=== PATIENT | female | born 1930 | race Caucasian/White ===

== ENCOUNTER 2017-01-30 12:21 | Inpatient (IN) ==
[2017-01-30] MEDS ORDERED: HYDROmorphone 2 MG/ML SYRINGE IV ONE (13:59)
[2017-01-30] MEDS ORDERED: ONDANSETRON 4 MG/2 ML VIAL IV ONE ×2 (13:59→16:30)
--- NOTE | 2017-01-30 14:16 | XRay Report ---
CLINICAL INFORMATION: Trauma TECHNIQUE: AP, supine chest x-ray COMPARISON: Previous chest x-ray dated 03/15/2014 FINDINGS: Lungs are negative. No focal pulmonary parenchymal infiltrate or mass. No pulmonary contusion. No pneumothorax identified on this AP, supine radiograph No detectable rib fractures. Heart size and mediastinum are prominent but this is probably related to magnification on this AP, supine chest x-ray. Aortic knob remain sharp. Severe degenerative disease in the lumbar spine. IMPRESSION: Negative AP, supine chest x-ray Interpreted and Authenticated by: Jasmeet Olguin 01/30/17
--- NOTE | 2017-01-30 14:18 | XRay Report ---
CLINICAL INFORMATION: Fall. Pelvic pain. TECHNIQUE: AP, supine pelvis COMPARISON: Chest x-ray dated 05/13/2015 FINDINGS: Fracture deformity of the proximal left femur. Patient has undergone prior left hip replacement. Negative pelvis. No lytic lesion. No fracture. Sacrum is negative. No detectable fracture. Severe degenerative disease in the lower lumbar spine. IMPRESSION: No acute, posttraumatic abnormality. Interpreted and Authenticated by: Jasmeet Olguin 01/30/17
--- NOTE | 2017-01-30 14:19 | XRay Report ---
CLINICAL INFORMATION: Trauma. Fell. TECHNIQUE: AP and crosstable lateral right knee COMPARISON: None. FINDINGS: Degenerative joint disease with moderate to severe narrowing of the medial femoral tibial joint and patellofemoral joint. Mild chondrocalcinosis. No acute right knee fracture. There is a probable small joint effusion. No lipohemarthrosis identified on crosstable lateral view. IMPRESSION: 1. Degenerative joint disease 2. Probable small joint effusion 3. No acute fracture Interpreted and Authenticated by: Jasmeet Olguin 01/30/17
--- NOTE | 2017-01-30 14:24 | XRay Report ---
CLINICAL INFORMATION: Fall. TECHNIQUE: AP and lateral left femur COMPARISON: Previous examination dated 01/04/2011 FINDINGS: Interval removal of an intramedullary nail extending the length of the left femur. Interval placement of a left total hip prosthesis. There is a healed fracture deformity proximally. Acute markedly comminuted left supracondylar fracture at the junction of the diaphysis and distal metaphysis. There are multiple fragments with impaction and displacement. IMPRESSION: Markedly comminuted distal left femoral fracture at the junction of the diaphysis and metaphysis. Interpreted and Authenticated by: Jasmeet Olguin 01/30/17
[2017-01-30 14:38] LABS: Mean Cell Volume 90.8 fL (80.0-100.0); Mean Corpuscular HGB Conc 32.7 g/dL (31.0-36.0); Mean Corpuscular Hemoglobin 29.7 pg (26.0-34.0); Platelet Count 269 K/mcL (140-440); RBC 4.24 M/mcL (4.00-5.20); Red Cell Distribution Width 14.4 % (11.5-14.5)
[2017-01-30 15:03] LABS: ALT/SGPT 9 U/l (0-40); Albumin 4.2 gm/dL (3.2-5.2); Albumin/Globulin Ratio 1.4 (1.0-2.3); Alkaline Phosphatase 68 U/L (39-117); Blood Urea Nitrogen 10 mg/dl (8-23)
[2017-01-30 15:11] LABS: Band Neutrophils % 1 % (0-10); Basophils % (Manual) 1 % (0-2); Eosinophils % (Manual) 1 % (0-7); Lymphocytes % 17 % (15-49); Monocytes % (Manual) 5 % (1-9); Platelet Estimate NORMAL (NORMAL); RBC Morphology NORMAL (NORMAL); Segmented Neutrophils % 75 % (38-78)
[2017-01-30] MEDS ORDERED: HYDROmorphone 2 MG/ML SYRINGE ONE (16:09)
[2017-01-30 16:29] LABS: Appearance,Urine CLOUDY; Bacteria,Urine FEW /hpf (0); Bilirubin,Urine NEG (NEG); Color,Urine YELLOW; Glucose,Urine (UA) NEGATIVE (NEG); Leukocyte Esterase,Urine 500 /uL (NEG); Nitrate,Urine NEG (NEG); Protein,Urine NEG (NEG); Specific Gravity,Urine 1.009 (1.000-1.035); Urine Blood NEG mg/dL (<0.03); Urine RBC 12 /hpf (0-1); Urine Squamous Epithelial Cell 1 /hpf (0-4); Urine WBC > 182 /hpf (0-4); Urobilinogen,Urine NEG (NEG)
[2017-01-30] MEDS ORDERED: fentaNYL 100 MCG/2 ML VIAL IV ONE (16:30)
[2017-01-30] MEDS ORDERED: PROPOFOL 200 MG/20 ML VIAL IV ONE (16:30)
[2017-01-30] MEDS ORDERED: DEXAMETHASONE 10 MG/ML VIAL IV ONE (16:30)
[2017-01-30] MEDS ORDERED: KETAMINE 100 MG/ML ML IV ONE (16:30)
[2017-01-30] MEDS ORDERED: LIDOCAINE HCL/PF 100 MG/5 ML SYRINGE IV ONE (16:30)
[2017-01-30] MEDS ORDERED: POTASSIUM CHLORIDE 20 MEQ PACKET PO PRN (17:28)
[2017-01-30] MEDS ORDERED: ACETAMINOPHEN 1,000 MG/100 ML BOTTLE IV PRN (17:28)
[2017-01-30] MEDS ORDERED: traZODone HCL 50 MG TABLET PO PRN (17:28)
[2017-01-30] MEDS ORDERED: MAGNESIUM SULFATE 2 GM/50 ML BAG IV PRN (17:28)
[2017-01-30] MEDS ORDERED: guaiFENesin/CODEINE 10 ML UDC PO PRN (17:28)
[2017-01-30] MEDS ORDERED: ACETAMINOPHEN 325 MG TABLET PO PRN (17:28)
[2017-01-30] MEDS ORDERED: ONDANSETRON 4 MG/2 ML VIAL IV PRN (17:28)
[2017-01-30] MEDS: cefTRIAXone 2 GM in DEXTROSE 5% IN WATER 50 ML IV SCH (18:34)
[2017-01-30] MEDS: 0.9 % SODIUM CHLORIDE 1,000 ML IV SCH (18:35)
--- NOTE | 2017-01-30 19:56 | Consultation ---
DATE OF CONSULTATION: 01/30/2017 DATE OF ADMISSION: 01/30/2017 PRIMARY CARE PHYSICIAN: Ishan Bedolla MD REASON FOR ADMISSION: Fall with left femur fracture. HISTORY OF CHIEF COMPLAINT: The patient is an 86-year-old resident of [facility]. She suffers from significant dementia and minimally functional at baseline, talk in 1 word sentences. Today she was found on the floor in significant pain and was brought into [facility] ER. Initial workup was significant for fracture femur. Dr. Walker was consulted for admission. Hospitalist service was requested for preoperative risk evaluation along with management of medical issues. At the time of examination, the patient is in significant pain. Though no history could be obtained, her son aRfa was able to provide most of the history, but otherwise extensive records were reviewed from the ER as to course of events from today. Other than that, patient does not appear to be short of breath. REVIEW OF SYSTEMS: Ten-point review of system attempted, could not perform, patient is essentially nonverbal. She would occasionally smile at questions. CURRENT MEDICATIONS: Tramadol 50. Paroxetine 20. Oxybutynin 5. Losartan 100. Levothyroxine 100. Furosemide 40. Donepezil 10. Aspirin 81. Amlodipine 2.5. Alendronate 70. PAST MEDICAL HISTORY: 1. History of hypertension. 2. Dementia. 3. Hypothyroidism. 4. Anxiety disorder. 5. Degenerative joint disease. 6. Osteoporosis. SOCIAL HISTORY: No history of smoking or alcoholism, lives at [facility] along with her . CODE STATUS: She is a NO CODE status. She sees primary care physician Ishan Bedolla MD. FAMILY HISTORY: None relevant given advanced age and presenting symptoms. PHYSICAL EXAMINATION: GENERAL: The patient is awake but not oriented. BMI 31. Height 5 feet 2 inches. VITAL SIGNS: Blood pressure 111/63, respiration rate 18, temperature 97.6, pulse 64, saturation 96% on room air. HEENT: Pupils symmetric. Oral cavity is dry. No ear or nose discharge. Head is normocephalic and atraumatic. NECK: No lymphadenopathy. HEART: S1, S2, regular rhythm, but ESM grade I at the aortic area. ABDOMEN: Soft. LOWER EXTREMITIES: Left lower extremity externally rotated and shortened as compared to right lower extremity, normal pulses posterior tibial. No cyanosis or clubbing. Significant spasm and erythema around the left lower end of thigh. SKIN: No suspicious lesions. PSYCHIATRIC: Alert but no anxiety or agitation, cooperative. NEURO: Nonfocal. Higher function could not be performed. Moving bilateral upper extremities. Significant dementia at baseline with no acute changes as per son. LABS AND IMAGING: White count 9.9, hemoglobin 12.6, INR 1. Sodium 140, potassium 4.1, creatinine 0.9, BUN 10. LFTs unremarkable. UA significant for 182 WBCs. X-ray femur left: Markedly comminuted distal left femoral fracture at junction of the diaphysis and metaphysis. ASSESSMENT AND PLAN: An 86-year-old admitted with left femur fracture/complicated urinary tract infection. 1. Left femur fracture. Will be managed by orthopedics including pain management and postoperative care. 2. Complicated urinary tract infection. Continue ceftriaxone. 3. History of dementia. Continue donepezil. Watch for delirium. 4. History of hypertension. Continue losartan. 5. Anxiety disorder. Continue paroxetine. PLAN FOR TODAY: 1. Admit as inpatient. 2. Nothing by mouth after midnight. 3. Operative interventions/postop care, DVT prophylaxis, and pain management as per orthopedics. 4. Preexisting medical condition management as above. AA:jordin Job ID: [id number] Doc ID: [id number] Anthony Walker MD
[2017-01-30 20:17] LABS: Hemoglobin A1C 5.5 % HGB (4.0-6.0)
[2017-01-30] MEDS ORDERED: SENNOSIDES/DOCUSATE SODIUM 1 TAB TABLET PO SCH (21:00)
[2017-01-30] MEDS: DOCUSATE SODIUM 100 MG CAPSULE PO SCH (21:05)
[2017-01-30] MEDS: 0.9 % SODIUM CHLORIDE 10 ML SYRINGE IV SCH (21:07)
[2017-01-31] MEDS: HYDROmorphone 2 MG/ML SYRINGE IV PRN ×3 (02:56→10:42)
[2017-01-31 06:11] LABS: Mean Cell Volume 90.9 fL (80.0-100.0); Mean Corpuscular HGB Conc 32.7 g/dL (31.0-36.0); Mean Corpuscular Hemoglobin 29.8 pg (26.0-34.0); Platelet Count 230 K/mcL (140-440); RBC 3.41 M/mcL (4.00-5.20); Red Cell Distribution Width 14.4 % (11.5-14.5)
[2017-01-31] MEDS: 0.9 % SODIUM CHLORIDE 10 ML SYRINGE IV SCH ×3 (06:11→21:31)
[2017-01-31 06:57] LABS: ALT/SGPT 11 U/l (0-40); Albumin 3.4 gm/dL (3.2-5.2); Albumin/Globulin Ratio 1.3 (1.0-2.3); Alkaline Phosphatase 62 U/L (39-117); Bilirubin,Direct < 0.2 mg/dL (0.0-0.3); Blood Urea Nitrogen 13 mg/dl (8-23); Gamma Glutamyl Transpeptidase 9 U/L (5-36); Phosphorous 3.1 mg/dL (2.7-4.5)
--- NOTE | 2017-01-31 07:35 | History and Physical Report ---
DATE OF ADMISSION: 01/30/2017 CHIEF COMPLAINT: Deformity of the left femur. HISTORY OF PRESENT ILLNESS: The patient is an 86-year-old confused lady who fell at the halfway, not using her walker, had immediate pain, swelling, and deformity of her left lower extremity. This was deformed. She was unable to bear weight. She was seen in the emergency room and diagnosed with a comminuted supracondylar femur fracture with severe osteopenia. She also has significant dementia. PAST MEDICAL HISTORY: She has been confused and has been in an assisted living facility until more recently. She had become somewhat reliant on her walker, but she has been walking short distances with the walker. She has had a prior total hip arthroplasty. ALLERGIES: TRAZADONE. MEDICATIONS: See admission form. PHYSICAL EXAMINATION: GENERAL: Very pleasant elderly 86-year-old in no acute distress. VITAL SIGNS: Respiratory rate is 16. LUNGS: Clear to auscultation bilaterally. CARDIOVASCULAR: Regular rate and rhythm. No murmurs, rubs, or gallops. ABDOMEN: Soft, nontender. NEURO: She seems to be appropriate for age but mentally/neurologically she is confused. LOWER EXTREMITIES: She is able to move her toes with good capillary refill, but pulses are diminished. She has some pain with any motion of the left lower extremity. Examination of the femur demonstrates deformity of the left femur with good capillary refill and quite a bit of swelling. No deformity of the right. IMAGING STUDIES: X-rays of the left femur demonstrate comminuted supracondylar femur fractures. X-rays of the right demonstrate osteopenia age-related, but no fracture, minimal arthritis. IMPRESSION: Left supracondylar femur fracture with severe osteopenia with some bone cement above, which will help I think with the repair. PLAN: An open reduction and internal fixation of the left supracondylar femur fracture with a supracondylar plate and screws understanding the risks and benefits up into and including have been discussed. Treatment options such as bracing, casting and nonsurgical options were discussed. The patient with the son has decided to proceed with open reduction and internal fixation of left supracondylar femur fracture. Amended report 01/31/2017 caren CRAVEN:caren Job ID: [id number] Doc ID: [id number] Andriy Walker MD
[2017-01-31] MEDS ORDERED: 0.9 % SODIUM CHLORIDE 250 ML IV SCH ×2 (07:45→15:45)
[2017-01-31 08:33] LABS: Eosinophils % (Manual) 1 % (0-7); Lymphocytes % 14 % (15-49); Monocytes % (Manual) 5 % (1-9); Platelet Estimate NORMAL (NORMAL); RBC Morphology NORMAL (NORMAL); Segmented Neutrophils % 80 % (38-78)
[2017-01-31] MEDS ORDERED: MULTIVIT,THER IRON,CA,FA & MIN 1 TABLET PO SCH (09:00)
[2017-01-31] MEDS: cefTRIAXone 2 GM in DEXTROSE 5% IN WATER 50 ML IV SCH (09:02)
[2017-01-31] MEDS: DOCUSATE SODIUM 100 MG CAPSULE PO SCH ×2 (09:05→21:26)
--- NOTE | 2017-01-31 10:15 | Internal Med Progress Note ---
Medical - PN: Subj Patient information: Note initiated : 01/31/17 at 10:12 am Service Date, if different from initiated Date: [] Patient: Andie Way 86 y/o F admitted on 01/30/17 for Fell without walker hurt right knee. Chief Complaint: [] Interval history: 01/30- 6-year-old with advanced dementia admitted with fall/left femur fracture and complicated UTI. surgeryon 01/31. Orthopedics on board. Continue pain management. Keep nothing by mouth after midnight. 01/31- patient nothing by mouth. Will review postop. Urine cultures pending. On Rocephin. Afebrile. No overnight events including fever chills nausea vomiting or worsening pain. Dementia at baseline - Constitutional Vitals: Vital Signs Temp Pulse Resp BP Pulse Ox 98.2 F 73 16 125/81 94 01/31/17 08:38 01/31/17 07:13 01/31/17 08:38 01/31/17 08:38 01/31/17 08:38 Period Temp Pulse Resp BP Sys/Camejo Pulse Ox Last 24 Hr 96.9 F-98.5 F 73-86 12-18 123-128/72-90 90-94 Intake and Output 01/30/17 01/31/17 01/31/17 21:59 05:59 13:59 Intake Total 50 / 50 150 / 150 Output Total 325 / 325 Balance 50 / 50 -175 / -175 Weight 172 lb Intake & Output: Intake & Output 01/30/17 01/31/17 01/31/17 21:59 05:59 13:59 Intake Total 50 / 50 150 / 150 Output Total 325 / 325 Balance 50 / 50 -175 / -175 Weight 172 lb Intake: IV 50 / 50 Rocephin 2 gm In Dextrose 50 / 50 5% in Water 50 ml @ 100 mls/hr IV DAILY [facility] Rx#: [id number] Oral 150 / 150 Output: Urine Catheter Amount 325 / 325 General appearance: cooperative, no acute distress Exam: distressed nonlabored breathing Left lower extremity shortened and externally rotated No family at bedside No pallor Medical - PN: Obj Da - Labs CBC & Chem 7: 01/31/17 05:15 01/31/17 05:15 Labs: Abnormal Lab Results 01/31/17 01/31/17 05:15 05:15 RBC 3.41 L Hgb 10.1 L Hct 31.0 L Seg Neutrophils % 80 H Lymphocytes % 14 L Glucose 124 H Meds: Medications Acetaminophen (Tylenol) 650 mg PO Q4-6HP PRN PRN Reason: PAIN/FEVER > 101 Last Admin: 01/30/17 23:41 Dose: 650 mg Docusate Sodium (Colace) 100 mg PO BID [facility] Last Admin: 01/31/17 09:05 Dose: Not Given Guaifenesin/Codeine Phosphate (Robitussin Ac) 10 ml PO Q4HP PRN PRN Reason: Cough Hydromorphone HCl (Dilaudid) 0 mg IV Q4HP PRN PRN Reason: Pain Last Admin: 01/31/17 05:14 Dose: 0.25 mg Magnesium Sulfate (Magnesium Sulfate) 2 gm in 50 mls @ 50 mls/hr IV UD PRN PRN Reason: MG = or < 1.7 Sodium Chloride (Sodium Chloride 0.9%) 1,000 mls @ 50 mls/hr IV .Q20H [facility] Stop: 02/02/17 05:27 Last Admin: 01/30/17 18:35 Dose: 50 mls/hr Acetaminophen (Ofirmev) 1,000 mg in 100 mls @ 200 mls/hr IV Q6HP PRN PRN Reason: PAIN/FEVER > 101 Ceftriaxone Sodium 2 gm/ (Dextrose) 50 mls @ 100 mls/hr IV DAILY [facility] Last Admin: 01/31/17 09:02 Dose: 100 mls/hr Sodium Chloride (Sodium Chloride 0.9%) 250 mls @ 20 mls/hr IV .[id number] [facility] Stop: 01/31/17 20:14 Iron Carb/Multivit/Summers/Folic Acid (Multivitamin W/Minerals) 1 tab PO DAILY [facility] Last Admin: 01/31/17 09:05 Dose: Not Given Ondansetron HCl (Zofran) 4 mg IV Q4-6HP PRN PRN Reason: Nausea And Vomiting Potassium Chloride (Klor-Con) 40 meq PO DAILYP PRN PRN Reason: K+ < 3.5 Senna/Docusate Sodium (Senna Plus Tablet) 1 tab PO HS [facility] Last Admin: 01/30/17 21:05 Dose: 1 tab Sodium Chloride (Saline Flush) 10 ml IV Q8 [facility] Last Admin: 01/31/17 06:11 Dose: Not Given Medical - PN: A/P - Time Spent With Patient Total time spent is greater than 50% in coordination of care (as documented) at patient's floor/unit and/or counseling patient: 25 - 35 minutes (1) Femur fracture, left Status: Acute Assessment and plan: * left femur fracture- operative intervention today. Patient nothing by mouth Issues managed by hospitalist service * complicated UTI-continue Rocephin. Await cultures * history of dementia-continue donepezil. delirium watch * Hypothyroidism on thyroxine * Anxiety disorder on paroxetine * Hypertension losartan/amlodipine * DNR plan * Review postop * Resume prior home medications post surgery * Continue antibiotic coverage and de-escalate based on cultures * Physical therapy Current Visit: Yes Medical - PN: Qual - VTE Deep Vein Thrombosis/Pulmonary Embolism Present on Admission: No
--- NOTE | 2017-01-31 13:22 | Emergency Department Note ---
Lower Extremity Injury HPI - General Chief Complaint: Extremity Injury, Lower Stated Complaint: Fell without walker hurt right knee Time Seen by Provider: 01/30/17 13:10 Source: other Mode of arrival: wheelchair Limitations: no limitations - History of Present Illness MD complaint: hip injury, knee injury Onset (ago): hour(s) (1) Injury: Left: hip, knee Type of Injury: other (fall) Place: home Severity: severe Improves with: immobilization Worsens with: movement, palpation Context: fall Associated symptoms: Reports: swelling, unable to bear weight Other symptoms: confusion (chronic dementia) Treatments prior to arrival: cold therapy - Related Data Home Medications Medication Instructions Recorded Confirmed cholecalciferol (vitamin D3) 1,000 1,000 unit PO QDAY cap 10/23/16 01/31/17 unit capsule Acetaminophen [Tylenol] 325 - 650 mg PO Q4-6HP PRN 01/31/17 01/31/17 Magnesium Hydroxide [Milk of 30 ml PO DAILYP PRN 01/31/17 01/31/17 Magnesia] Phenyleph/Pramoxin/Glycr/W.pet 51 gm RC 2-3XW PRN 01/31/17 01/31/17 [Hemorrhoidal Cream] Previous Rx's Medication Instructions Recorded paroxetine 20 mg tablet 20 mg PO QDAY #90 tab 01/09/16 levothyroxine 100 mcg capsule 100 mcg PO QDAY #90 cap 03/19/16 aspirin 81 mg chewable tablet 81 mg PO QDAY #30 tab 03/27/16 furosemide 40 mg tablet 40 mg PO QDAY 90 Days 09/25/16 potassium chloride ER 10 mEq 10 meq PO QDAY #180 tab 11/06/16 tablet,extended release alendronate 70 mg tablet 70 mg PO QWEEK #12 tab 11/14/16 donepezil 10 mg tablet 10 mg PO QDAY 90 Days 11/14/16 omeprazole 40 mg capsule,delayed 40 mg PO QDAY 90 Days 11/14/16 release oxybutynin chloride 5 mg tablet 5 mg PO BID PRN 90 Days 11/14/16 tramadol 50 mg tablet 50 mg PO QHS PRN #90 tab 11/15/16 losartan 100 mg tablet 100 mg PO QDAY 90 Days 11/19/16 amlodipine 2.5 mg tablet 2.5 mg PO QDAY 90 Days 11/26/16 docusate sodium 100 mg capsule 100 mg PO BID PRN #180 cap 12/10/16 Allergies Allergy/AdvReac Type Severity Reaction Status Date / Time trazodone AdvReac Intermediate Confusion Verified 10/23/16 09:50 Review of Systems Limitations: ROS unobtainable due to patients medical condition (patient is demented but able to cooperate adequately with initial assessment re injury) Constitutional: Denies: fever, chills Eyes: Denies: eye pain, eye discharge ENT ED: Denies: ear pain, throat pain Cardiovascular: Denies: chest pain, palpitations Respiratory: Denies: cough Gastrointestinal: Reports: constipation. Denies: abdominal pain, nausea, vomiting Genitourinary: Reports: urgency, dysuria, other (Chronic incontinence) Musculoskeletal: Reports: back pain, joint swelling, arthralgia Integumentary: Denies: rash Neurological: Reports: weakness, abnormal gait (uses walker, was not using walker at time of injury). Denies: headache Psychiatric: Reports: other (dementia) Past Medical History - Past Medical History Source: old records reviewed, obtained from family Medical history: Reports: arthritis, CVA, dementia, hypertension, osteoporosis, thyroid disease Surgical history ED: Reports: hip replacement, orthopedic, other Psychiatric history: Reports: other (Dementia and depression) [employer] history: Reports: other (Uterine prolapse) Family history: Reports: non-contributory - Social History smoking status: Unknown if ever smoked Alcohol use: Reports: Unknown Drug use: Reports: none Physical Exam - General Limitations: no limitations General appearance: alert, in distress - Head Head exam: atraumatic, normocephalic - Eye Eye exam: Present: normal appearance. Absent: scleral icterus, conjunctival injection - ENT ENT exam: mucous membranes moist - Neck Neck exam: Present: normal inspection. Absent: tenderness, meningismus, lymphadenopathy - Chest Chest inspection: Present: symmetric chest wall rise, other (kyphosis). Absent : tenderness - Respiratory Respiratory exam: Present: normal lung sounds bilaterally (diminished in bases) . Absent: respiratory distress, wheezes - Cardiovascular Cardiovascular exam: Present: tachycardia - Abdominal Exam Abdominal exam: Present: soft. Absent: distention, tenderness, guarding, rebound - Expanded Lower Extremity Exam Hip/Pelvis exam: Present: swelling, external rotation, shortening Upper leg exam: Present: swelling Knee exam: Present: tenderness, swelling, deformity (Left leg is foreshortened and exernally rotated. This is a previously surgical hip, and there is some concern for previous femur fractures. She is profoundly tender with any manipulation of the left leg. Knee is swollen and tight, tender the entire length of femur into hip. Right pelvis nontender to palpation.) Lower leg exam: Present: Achilles tendon intact Ankle exam: Present: other (foot externally rotated) Foot/toe exam: Absent: swelling, ecchymosis, erythema, nail avulsion Course Course Narrative: Xray of hip femur and knee reveal multiplane fracture of the distal femur. Dr. Peace contacted. She will be admitted to the services of Dr Weiner as hospitalist, DR Peace will perform orthopedic repair. She is medicated for pain and is "comfortable" by her report. Family at the bedside. Urinary catheter in place, IV running. NPO since around noon. Awaiting transfer to the medical surgical floor Vital Signs Temperature 97.6 F 01/30/17 12:23 Pulse Rate 100 H 01/30/17 12:23 Respiratory Rate 18 01/30/17 12:23 Blood Pressure 111/63 01/30/17 12:23 Pulse Oximetry (%) 3 L 01/30/17 12:23 Temperature 98.6 F 01/31/17 12:37 Pulse Rate 73 01/31/17 07:13 Respiratory Rate 16 01/31/17 12:37 Blood Pressure 116/70 01/31/17 12:37 Pulse Oximetry (%) 92 01/31/17 12:37 Extremity Injury, Lower - MDM Narrative Medical decision making narrative: Initial urine dip indicates probable UTI. She is chronically incontinent. Sent for Micro and culture CBC, CMP actually quite unremarkable, CR 0.9, Lytes WNL, Liver enzymes WNL Await transfer to med-surg unit for follow up and repair - Lab Data Result diagrams: 01/31/17 05:15 01/31/17 05:15 Lab Results 01/30/17 01/30/17 01/30/17 Range/Units 14:02 14:02 14:02 WBC 9.9 (4.5-11.0) K/mcL RBC 4.24 (4.00-5.20) M/mcL Hgb 12.6 (12.0-15.0) g/dL Hct 38.5 (36.0-48.0) % MCV 90.8 (80.0-100.0) fL MCH 29.7 (26.0-34.0) pg MCHC 32.7 (31.0-36.0) g/dL RDW 14.4 (11.5-14.5) % Plt Count 269 (140-440) K/mcL MPV 7.9 (7.4-10.4) fL Total Counted 100 Seg Neutrophils % 75 (38-78) % Band Neutrophils % 1 (0-10) % Lymphocytes % 17 (15-49) % Monocytes % (Manual) 5 (1-9) % Eosinophils % (Manual) 1 (0-7) % Basophils % (Manual) 1 (0-2) % Platelet Estimate Normal (NORMAL) RBC Morphology Normal (NORMAL) PT 13.3 (11.9-14.5) sec INR 1.0 (0.9-1.1) Sodium 140 (133-145) mmol/L Potassium 4.1 (3.3-5.1) mmol/L Chloride 100 (96-108) mmol/L Carbon Dioxide 26 (22-30) mmol/L Anion Gap 14.0 (8-16) BUN 10 (8-23) mg/dl Creatinine 0.9 (0.6-1.1) mg/dl GFR Calculation 58 Glucose 125 H (70-105) mg/dL Hemoglobin A1c (4.0-6.0) % HGB Estim Average Glucose mg/dL Calcium 10.1 (8.6-10.4) mg/dl Total Bilirubin 0.3 (0.0-1.0) mg/dL AST 14 (0-37) U/l ALT 9 (0-40) U/l Alkaline Phosphatase 68 (39-117) U/L Total Protein 7.1 (5.9-8.4) gm/dL Albumin 4.2 (3.2-5.2) gm/dL Globulin 2.9 (2.2-3.7) gm/dL Albumin/Globulin Ratio 1.4 (1.0-2.3) Urine Color Urine Appearance Urine pH (5.0-9.0) Ur Specific [place] (1.000-1.035) Urine Protein (NEG) mg/dL Urine Glucose (UA) (NEG) mg/dL Urine Ketones (NEG) mg/dL Urine Occult Blood (<0.03) mg/dL Urine Nitrate (NEG) Urine Bilirubin (NEG) mg/dL Urine Urobilinogen (NEG) mg/dL Ur Leukocyte Esterase (NEG) /uL Urine RBC (0-1) /hpf Urine WBC (0-4) /hpf Ur Squamous Epith Cells (0-4) /hpf Urine Bacteria (0) /hpf Ur Culture Indicated? 01/30/17 01/30/17 Range/Units 14:02 16:14 WBC (4.5-11.0) K/mcL RBC (4.00-5.20) M/mcL Hgb (12.0-15.0) g/dL Hct (36.0-48.0) % MCV (80.0-100.0) fL MCH (26.0-34.0) pg MCHC (31.0-36.0) g/dL RDW (11.5-14.5) % Plt Count (140-440) K/mcL MPV (7.4-10.4) fL Total Counted Seg Neutrophils % (38-78) % Band Neutrophils % (0-10) % Lymphocytes % (15-49) % Monocytes % (Manual) (1-9) % Eosinophils % (Manual) (0-7) % Basophils % (Manual) (0-2) % Platelet Estimate (NORMAL) RBC Morphology (NORMAL) PT (11.9-14.5) sec INR (0.9-1.1) Sodium (133-145) mmol/L Potassium (3.3-5.1) mmol/L Chloride (96-108) mmol/L Carbon Dioxide (22-30) mmol/L Anion Gap (8-16) BUN (8-23) mg/dl Creatinine (0.6-1.1) mg/dl GFR Calculation Glucose (70-105) mg/dL Hemoglobin A1c 5.5 (4.0-6.0) % HGB Estim Average Glucose 111 mg/dL Calcium (8.6-10.4) mg/dl Total Bilirubin (0.0-1.0) mg/dL AST (0-37) U/l ALT (0-40) U/l Alkaline Phosphatase (39-117) U/L Total Protein (5.9-8.4) gm/dL Albumin (3.2-5.2) gm/dL Globulin (2.2-3.7) gm/dL Albumin/Globulin Ratio (1.0-2.3) Urine Color Yellow Urine Appearance Cloudy Urine pH 7.0 (5.0-9.0) Ur Specific [place] 1.009 (1.000-1.035) Urine Protein Neg (NEG) mg/dL Urine Glucose (UA) Negative (NEG) mg/dL Urine Ketones Neg (NEG) mg/dL Urine Occult Blood Neg (<0.03) mg/dL Urine Nitrate Neg (NEG) Urine Bilirubin Neg (NEG) mg/dL Urine Urobilinogen Neg (NEG) mg/dL Ur Leukocyte Esterase 500 A (NEG) /uL Urine RBC 12 H (0-1) /hpf Urine WBC > 182 H (0-4) /hpf Ur Squamous Epith Cells 1 (0-4) /hpf Urine Bacteria Few A (0) /hpf Ur Culture Indicated? Yes Disposition Clinical Impression: Fracture of femur, Osteoarthrosis, Femur fracture, left, Hypothyroidism ( acquired) Disposition: Xfer As Inpt ([facility]) Condition: Fair Time of Disposition: 17:18 (01/30/2017)
[2017-01-31] MEDS ORDERED: HETASTARCH 6% 500 ML BAG IV ONE (16:30)
[2017-01-31] MEDS ORDERED: MAGNESIUM HYDROXIDE 30 ML ORAL.SUSP PO PRN ×4 (18:17→20:24)
[2017-01-31] MEDS ORDERED: HYDROmorphone 2 MG/ML SYRINGE IV PRN ×3 (18:17→20:24)
[2017-01-31] MEDS ORDERED: ONDANSETRON 4 MG/2 ML VIAL IV PRN ×4 (18:17→20:24)
[2017-01-31] MEDS ORDERED: HYDROcodone/APAP 5/325MG TABLET PO PRN ×2 (18:17→20:24)
[2017-01-31] MEDS ORDERED: BENZOCAINE/MENTHOL 1 LOZENGE PO PRN ×3 (18:17→20:24)
[2017-01-31] MEDS ORDERED: ACETAMINOPHEN 325 MG TABLET PO PRN ×2 (18:17→20:24)
[2017-01-31] MEDS ORDERED: TRANEXAMIC ACID 1,000 MG/10 ML VIAL IV ONE (18:17)
[2017-01-31] MEDS ORDERED: BISACODYL 10 MG SUPP.RECT PR PRN ×2 (18:17→20:24)
[2017-01-31] MEDS ORDERED: TEMAZEPAM 15 MG CAPSULE PO PRN ×2 (18:17→20:24)
[2017-01-31] MEDS ORDERED: POLYETHYLENE GLYCOL 3350 17 GM PACKET PO PRN ×2 (18:17→20:24)
[2017-01-31] MEDS ORDERED: FLEETS ADULT ENEMA PR PRN ×2 (18:17→20:24)
[2017-01-31] MEDS ORDERED: OXYBUTYNIN CHLORIDE 5 MG TABLET PO PRN ×2 (18:22→20:24)
[2017-01-31] MEDS ORDERED: [UNRECOGNIZED DRUG - OTHER] RC PRN (18:22)
[2017-01-31] MEDS ORDERED: DOCUSATE SODIUM 100 MG CAPSULE PO PRN (18:22)
[2017-01-31] MEDS ORDERED: 0.45 % SODIUM CHLORIDE 1,000 ML IV SCH (18:30)
[2017-01-31] MEDS ORDERED: ceFAZolin 1 GM VIAL IV SCH (18:30)
[2017-01-31] MEDS ORDERED: NALOXONE HCL 0.4 MG/ML VIAL IV PRN (18:31)
[2017-01-31] MEDS ORDERED: METHOCARBAMOL 1,000 MG/10 ML VIAL IV PRN (18:31)
[2017-01-31] MEDS ORDERED: ePHEDrine 50 MG/ML AMPUL IV PRN (18:31)
[2017-01-31] MEDS ORDERED: PROMETHAZINE 25 MG/ML VIAL IV PRN (18:31)
[2017-01-31] MEDS ORDERED: FLUMAZENIL 0.1 MG/ML ML IV PRN (18:31)
[2017-01-31] MEDS ORDERED: diphenhydrAMINE 50 MG/ML VIAL IV PRN (18:31)
[2017-01-31] MEDS ORDERED: MEPERIDINE 25 MG/ML SYRINGE IV PRN (18:31)
[2017-01-31] MEDS ORDERED: ATROPINE SULFATE 0.4 MG/ML VIAL IV PRN (18:31)
[2017-01-31] MEDS ORDERED: METOPROLOL TARTRATE 5 MG/5 ML VIAL IV PRN (18:31)
[2017-01-31] MEDS ORDERED: IPRATROPIUM/ALBUTEROL 3 ML AMPUL.NEB NEB PRN (18:31)
[2017-01-31] MEDS ORDERED: LACTATED RINGERS 1,000 ML IV SCH (18:45)
[2017-01-31] MEDS: fentaNYL 100 MCG/2 ML VIAL IV PRN ×4 (18:45→18:53)
[2017-01-31] MEDS ORDERED: fentaNYL 100 MCG/2 ML VIAL IV ONE (18:47)
--- NOTE | 2017-01-31 19:09 | XRay Report ---
CLINICAL INFORMATION: Post surgical follow-up TECHNIQUE: AP and lateral left femur COMPARISON: Preoperative evaluation dated 01/30/2017 FINDINGS: Status post open reduction and internal fixation of a comminuted distal left femoral fracture. Long length dynamic compression plate with multiple screws is present. Alignment is near-anatomic and significantly improved IMPRESSION: Status post open reduction and internal fixation of distal left femur fracture Interpreted and Authenticated by: Jasmeet Olguin 01/31/17
[2017-01-31] MEDS: 0.9 % SODIUM CHLORIDE 1,000 ML IV SCH (19:29)
[2017-01-31] MEDS ORDERED: ACETAMINOPHEN 1,000 MG/100 ML BOTTLE IV PRN (20:24)
[2017-01-31] MEDS ORDERED: POTASSIUM CHLORIDE 20 MEQ PACKET PO PRN (20:24)
[2017-01-31] MEDS ORDERED: [UNRECOGNIZED DRUG - OTHER] PR PRN (20:24)
[2017-01-31] MEDS ORDERED: guaiFENesin/CODEINE 10 ML UDC PO PRN (20:24)
[2017-01-31] MEDS ORDERED: 0.9 % SODIUM CHLORIDE 1,000 ML IV SCH (20:24)
[2017-01-31] MEDS ORDERED: MAGNESIUM SULFATE 2 GM/50 ML BAG IV PRN (20:24)
[2017-01-31] MEDS ORDERED: DOCUSATE SODIUM 100 MG CAPSULE PO SCH (21:00)
[2017-01-31] MEDS ORDERED: SENNOSIDES 1 TABLET PO SCH (21:00)
[2017-01-31] MEDS ORDERED: SENNOSIDES/DOCUSATE SODIUM 1 TAB TABLET PO SCH (21:00)
[2017-01-31] MEDS ORDERED: ASPIRIN 325 MG ENTERIC COATED TABLET PO SCH (21:00)
[2017-01-31] MEDS: 0.45 % SODIUM CHLORIDE 1,000 ML IV SCH (21:24)
[2017-01-31] MEDS: ASPIRIN 325 MG ENTERIC COATED TABLET PO SCH (21:26)
[2017-01-31] MEDS: SENNOSIDES 1 TABLET PO SCH (21:26)
[2017-01-31] MEDS ORDERED: 0.9 % SODIUM CHLORIDE 10 ML SYRINGE IV SCH (22:00)
[2017-02-01] MEDS ORDERED: KETOROLAC 15 MG/ML VIAL IV SCH
[2017-02-01] MEDS: KETOROLAC 15 MG/ML VIAL IV SCH ×4 (00:34→18:36)
[2017-02-01] MEDS ORDERED: ceFAZolin 1 GM VIAL IV SCH (02:30)
[2017-02-01] MEDS: 0.9 % SODIUM CHLORIDE 10 ML SYRINGE IV SCH ×3 (05:50→20:39)
[2017-02-01 06:34] LABS: ALT/SGPT 9 U/l (0-40); Albumin 2.9 gm/dL (3.2-5.2); Albumin/Globulin Ratio 1.6 (1.0-2.3); Alkaline Phosphatase 42 U/L (39-117); Bilirubin,Direct < 0.2 mg/dL (0.0-0.3); Blood Urea Nitrogen 12 mg/dl (8-23); Gamma Glutamyl Transpeptidase 8 U/L (5-36); Magnesium 1.9 mg/dL (1.6-2.5); Phosphorous 2.5 mg/dL (2.7-4.5); Uric Acid 5.4 mg/dL (2.5-8.0)
[2017-02-01 06:57] LABS: Mean Cell Volume 91.6 fL (80.0-100.0); Mean Corpuscular HGB Conc 32.4 g/dL (31.0-36.0); Mean Corpuscular Hemoglobin 29.7 pg (26.0-34.0); Platelet Count 152 K/mcL (140-440); RBC 2.24 M/mcL (4.00-5.20); Red Cell Distribution Width 14.1 % (11.5-14.5)
[2017-02-01] MEDS ORDERED: 0.9 % SODIUM CHLORIDE 250 ML IV SCH ×2 (07:45→08:30)
--- NOTE | 2017-02-01 08:41 | Operative Note ---
DATE OF OPERATION: 01/30/2017 PREOPERATIVE DIAGNOSIS: Left femur supracondylar femur fracture. POSTOPERATIVE DIAGNOSIS: Left femur supracondylar femur fracture. PROCEDURE: Open reduction and internal fixation of left supracondylar femur fracture. SURGEON: Andriy Walker MD COIL SHAPER: Ramez Carter PA-C ANESTHESIA: General LMA anesthesia. ESTIMATED BLOOD LOSS: About 250 mL IMPLANTS: 12-hole supracondylar plate from [place], number of screws were per nurse's note. Image was can used to confirm. DESCRIPTION OF PROCEDURE: The patient was sterilely prepped and draped in the usual sterile fashion with the left leg after confirming the operative site. Tranexamic acid 1 gram was given and we made a 2 inch incision at the supracondylar area at the epicondyle area through the IT band. I placed the plate in the submuscular level, made an anterior incision 2 inches in size and used a clamp to reduce the fracture. Using a bump posteriorly, we placed pressure posteriorly to reduce the fracture and clamp laterally was also used. We then irrigated thoroughly and then placed 1 screw proximal and 1 distal and then screws as we held the knee out of extension and placed additional 3 screws distal, 3 screws proximal. Once this was done, we placed an additional 8 screws proximal to the fracture site, 3 into the fracture site and 5 distal. We irrigated and took pictures, excellent alignment was achieved in all planes. We then closed the fascial layer with 0 Vicryl and closed the skin with 2-0 Vicryl and chanda superficially. Sterile bandage applied. A knee immobilizer was placed. The patient left the operating room in good condition. RB:caren Job ID: [id number] Doc ID: [id number] Andriy Walker MD
[2017-02-01] MEDS ORDERED: cefTRIAXone 2 GM in DEXTROSE 5% IN WATER 50 ML IV SCH (09:00)
[2017-02-01] MEDS ORDERED: POTASSIUM CHLORIDE 10 MEQ TABLET PO SCH (09:00)
[2017-02-01] MEDS ORDERED: PARoxetine 20 MG TABLET PO SCH (09:00)
[2017-02-01] MEDS ORDERED: LOSARTAN POTASSIUM 100 MG PO SCH (09:00)
[2017-02-01] MEDS ORDERED: NON FORMULARY MEDICATION 1 DOSE MISCELL (Cholecalciferol (Vitamin D3) [Vitamin D3] 1,000 U PO SCH (09:00)
[2017-02-01] MEDS ORDERED: DONEPEZIL 10 MG TABLET PO SCH (09:00)
[2017-02-01] MEDS ORDERED: AMLODIPINE BESYLATE 2.5 MG PO SCH (09:00)
[2017-02-01] MEDS ORDERED: MULTIVIT,THER IRON,CA,FA & MIN 1 TABLET PO SCH (09:00)
[2017-02-01] MEDS ORDERED: OMEPRAZOLE 40 MG PO SCH (09:00)
[2017-02-01] MEDS ORDERED: LEVOTHYROXINE SODIUM 100 MCG PO SCH (09:00)
[2017-02-01] MEDS ORDERED: FUROSEMIDE 40 MG TABLET PO SCH (09:00)
[2017-02-01 09:11] LABS: Lymphocytes % 12 % (15-49); Monocytes % (Manual) 8 % (1-9); Platelet Estimate NORMAL (NORMAL); RBC Morphology NORMAL (NORMAL); Segmented Neutrophils % 80 % (38-78)
[2017-02-01] MEDS: LOSARTAN 50 MG TABLET PO SCH (09:44)
[2017-02-01] MEDS: PARoxetine 20 MG TABLET PO SCH (09:44)
[2017-02-01] MEDS: DOCUSATE SODIUM 100 MG CAPSULE PO SCH ×2 (09:45→20:38)
[2017-02-01] MEDS: LEVOTHYROXINE 100 MCG TABLET PO SCH (09:46)
[2017-02-01] MEDS: PANTOPRAZOLE 40 MG TABLET PO SCH (09:46)
[2017-02-01] MEDS: ASPIRIN 325 MG ENTERIC COATED TABLET PO SCH ×2 (09:47→20:38)
[2017-02-01] MEDS: amLODIPine 5 MG TABLET PO SCH (09:48)
[2017-02-01] MEDS: DONEPEZIL 10 MG TABLET PO SCH (09:49)
[2017-02-01] MEDS: FUROSEMIDE 40 MG TABLET PO SCH (09:49)
[2017-02-01] MEDS: VITAMIN D3 1,000 UNIT TABLET PO SCH (09:49)
[2017-02-01] MEDS: POTASSIUM CHLORIDE 10 MEQ TABLET PO SCH (09:50)
--- NOTE | 2017-02-01 11:26 | Internal Med Progress Note ---
Medical - PN: Subj Patient information: Note initiated : 02/01/17 at 11:23 am Service Date, if different from initiated Date: [] Patient: Andie Way 86 y/o F admitted on 01/30/17 for Fell w/o Walker Hurt Knee/Left Femur Fracture, UTI. Chief Complaint: [] Interval history: 01/30- 6-year-old with advanced dementia admitted with fall/left femur fracture and complicated UTI. surgeryon 01/31. Orthopedics on board. Continue pain management. Keep nothing by mouth after midnight. 01/31- patient nothing by mouth. Will review postop. Urine cultures pending. On Rocephin. Afebrile. No overnight events including fever chills nausea vomiting or worsening pain. Dementia at baseline 02/01-Postop day 1. hemoglobin down to 6.7. 2 units PRBC transfusion today. Overnight no fever chills nausea vomiting on postoperative pain. Family at bedside. no active concerns per family and patient or staff. urine cultures negative so far.on antibiotic coverage - Constitutional Vitals: Vital Signs Temp Pulse Resp BP Pulse Ox 98.8 F 70 18 120/69 90 02/01/17 08:21 02/01/17 10:00 02/01/17 08:21 02/01/17 08:21 02/01/17 10:00 Period Temp Pulse Resp BP Sys/[place] Pulse Ox Last 24 Hr 97.1 F-98.8 F 70-96 12-20 116-161/65-107 81-100 Intake and Output 01/31/17 02/01/17 02/01/17 21:59 05:59 13:59 Intake Total 1700 / 1700 200 / 200 385 / 385 Output Total 950 / 950 350 / 350 Balance 750 / 750 -150 / -150 385 / 385 Weight 180 lb 8 oz 180 lb 8 oz Patient Weight 02/02/17 05:59 Weight 180 lb 8 oz Intake & Output: Intake & Output 01/31/17 02/01/17 02/01/17 21:59 05:59 13:59 Intake Total 1700 / 1700 200 / 200 385 / 385 Output Total 950 / 950 350 / 350 Balance 750 / 750 -150 / -150 385 / 385 Weight 180 lb 8 oz 180 lb 8 oz Intake: Oral 200 / 200 60 / 60 Blood Product 325 / 325 IV - Manual Only 1700 / 1700 Output: Urine Catheter Amount 550 / 550 350 / 350 Estimated Blood Loss 400 / 400 Other: Meal Breakfast Percent of Meal Consumed 75% Feeding Ability Independent # Voids 1 # Bowel Movements 1 General appearance: cooperative, no acute distress Exam: Nondistressed nonlabored breathing no anxiety Pallor Medical - PN: Obj Da - Labs CBC & Chem 7: 02/01/17 05:00 02/01/17 05:00 Labs: Abnormal Lab Results 02/01/17 02/01/17 01/31/17 05:00 05:00 05:15 RBC 2.24 L Hgb 6.7 L* Hct 20.5 L* Seg Neutrophils % 80 H Lymphocytes % 12 L Glucose 120 H 124 H Calcium 8.2 L Phosphorus 2.5 L Total Protein 4.7 L Albumin 2.9 L Globulin 1.8 L 01/31/17 05:15 RBC 3.41 L Hgb 10.1 L Hct 31.0 L Seg Neutrophils % 80 H Lymphocytes % 14 L Glucose Calcium Phosphorus Total Protein Albumin Globulin Meds: Medications Acetaminophen (Tylenol) 650 mg PO Q4-6HP PRN PRN Reason: PAIN/FEVER > 101 Acetaminophen/Hydrocodone Bitart ([place] 5/325mg) 0 tab PO Q4HP PRN PRN Reason: Pain Amlodipine Besylate (Norvasc) 2.5 mg PO DAILY [facility] Last Admin: 02/01/17 09:48 Dose: 2.5 mg Aspirin (Ecotrin) 325 mg PO BID [facility] Last Admin: 02/01/17 09:47 Dose: 325 mg Bisacodyl (Dulcolax) 10 mg SC Q2-3DAYS PRN PRN Reason: Constipation Docusate Sodium (Colace) 100 mg PO BID [facility] Last Admin: 02/01/17 09:45 Dose: 100 mg Donepezil HCl (Aricept) 10 mg PO QDAY [facility] Last Admin: 02/01/17 09:49 Dose: 10 mg Furosemide (Lasix) 40 mg PO QDAY [facility] Last Admin: 02/01/17 09:49 Dose: 40 mg Guaifenesin/Codeine Phosphate (Robitussin Ac) 10 ml PO Q4HP PRN PRN Reason: Cough Hydromorphone HCl (Dilaudid) 0 mg IV Q4HP PRN PRN Reason: Pain Magnesium Sulfate (Magnesium Sulfate) 2 gm in 50 mls @ 50 mls/hr IV UD PRN PRN Reason: MG = or < 1.7 Acetaminophen (Ofirmev) 1,000 mg in 100 mls @ 200 mls/hr IV Q6HP PRN PRN Reason: PAIN/FEVER > 101 Sodium Chloride (Sodium Chloride 0.45%) 1,000 mls @ 40 mls/hr IV .Q24H [facility] Last Admin: 01/31/17 21:24 Dose: 40 mls/hr Ceftriaxone Sodium 2 gm/ (Dextrose) 50 mls @ 100 mls/hr IV DAILY [facility] Sodium Chloride (Sodium Chloride 0.9%) 250 mls @ 20 mls/hr IV .[id number] [facility] Stop: 02/01/17 20:14 Last Admin: 02/01/17 09:57 Dose: 20 mls/hr Sodium Chloride (Sodium Chloride 0.9%) 250 mls @ 20 mls/hr IV .[id number] [facility] Stop: 02/01/17 20:59 Iron Carb/Multivit/[place]/Folic Acid (Multivitamin W/Minerals) 1 tab PO DAILY [facility] Last Admin: 02/01/17 09:45 Dose: 1 tab Ketorolac Tromethamine (Toradol) 15 mg IV Q6 [facility] Stop: 02/02/17 18:01 Last Admin: 02/01/17 05:49 Dose: 15 mg Levothyroxine Sodium (Synthroid) 100 mcg PO ACB [facility] Last Admin: 02/01/17 09:46 Dose: 100 mcg Losartan Potassium (Cozaar) 50 mg PO DAILY [facility] Last Admin: 02/01/17 09:44 Dose: 50 mg Magnesium Hydroxide (Milk Of Magnesia) 30 ml PO BIDP PRN PRN Reason: Constipation Ondansetron HCl (Zofran) 4 mg IV Q4-6HP PRN PRN Reason: Nausea And Vomiting Oxybutynin Chloride (Ditropan) 5 mg PO BIDP PRN PRN Reason: bladder spasms Pantoprazole Sodium (Protonix) 40 mg PO QAMAC [facility] Last Admin: 02/01/17 09:46 Dose: 40 mg Paroxetine HCl (Paxil) 20 mg PO QDAY [facility] Last Admin: 02/01/17 09:44 Dose: 20 mg Phenyleph/Pramoxin/Glycr/W.Pet [ Hemorrhoidal Cream] 51 dose SC 2-3XW PRN PRN Reason: Hemorrhoids Polyethylene Glycol (Miralax) 17 gm PO DAILYP PRN PRN Reason: Constipation Potassium Chloride (Klor-Con) 40 meq PO DAILYP PRN PRN Reason: K+ < 3.5 Potassium Chloride (Kdur) 10 meq PO QAMCC [facility] Last Admin: 02/01/17 09:50 Dose: 10 meq Senna (Senokot) 2 tab PO HS [facility] Last Admin: 01/31/17 21:26 Dose: 2 tab Sodium Biphosphate/Sodium Phosphate (Fleets Adult) 1 dose SC Q3-4DAYS PRN PRN Reason: Constipation Sodium Chloride (Saline Flush) 10 ml IV Q8 [facility] Last Admin: 02/01/17 05:50 Dose: 10 ml Temazepam (Restoril) 15 mg PO HSP PRN PRN Reason: Insomnia Throat Lozenges (Cepacol) 1 lozenge PO PRN PRN PRN Reason: Sore Throat Vitamin D (Vitamin D3) 1,000 unit PO DAILY [facility] Last Admin: 02/01/17 09:49 Dose: 1,000 unit Medical - PN: A/P - Time Spent With Patient Total time spent is greater than 50% in coordination of care (as documented) at patient's floor/unit and/or counseling patient: 25 - 35 minutes (1) Femur fracture, left Status: Acute Assessment and plan: * left femur fracture- operative intervention today. Patient nothing by mouth Issues managed by hospitalist service * acute blood loss anemia-2 units PRBC * complicated UTI- continue antibiotic coverage * history of dementia-continue donepezil. * Hypothyroidism on thyroxine * Anxiety disorder on paroxetine * Hypertension losartan/amlodipine * DNR plan * continue antibiotic coverage * 2 units PRBC * Continue home meds * physical therapy and SNF transition likely Saturday or Saturday Current Visit: Yes Medical - PN: Qual - VTE Deep Vein Thrombosis/Pulmonary Embolism Present on Admission: No
[2017-02-01] MEDS: 0.45 % SODIUM CHLORIDE 1,000 ML IV SCH (18:26)
[2017-02-01] MEDS: SENNOSIDES 1 TABLET PO SCH (20:38)
[2017-02-02] MEDS: KETOROLAC 15 MG/ML VIAL IV SCH ×2 (00:10→05:53)
[2017-02-02 06:44] LABS: Mean Cell Volume 91.1 fL (80.0-100.0); Mean Corpuscular HGB Conc 33.1 g/dL (31.0-36.0); Mean Corpuscular Hemoglobin 30.1 pg (26.0-34.0); Platelet Count 131 K/mcL (140-440); Red Cell Distribution Width 14.6 % (11.5-14.5)
[2017-02-02] MEDS: 0.9 % SODIUM CHLORIDE 10 ML SYRINGE IV SCH (06:53)
[2017-02-02 07:44] LABS: ALT/SGPT 9 U/l (0-40); Albumin 2.7 gm/dL (3.2-5.2); Albumin/Globulin Ratio 1.3 (1.0-2.3); Alkaline Phosphatase 43 U/L (39-117); Bilirubin,Direct < 0.2 mg/dL (0.0-0.3); Blood Urea Nitrogen 14 mg/dl (8-23); Gamma Glutamyl Transpeptidase 8 U/L (5-36); Magnesium 1.8 mg/dL (1.6-2.5); Phosphorous 2.2 mg/dL (2.7-4.5); Uric Acid 5.5 mg/dL (2.5-8.0)
--- NOTE | 2017-02-02 07:52 | Orthopedic Progress Note ---
Subjective Patient information: Note initiated : 02/02/17 at 7:51 am Service Date, if different from initiated Date: [] Patient: Andie Way 86 y/o F admitted on 01/30/17 for Fell w/o Walker Hurt Knee/Left Femur Fracture, UTI. Chief Complaint: [confused but slow to walk and is eating] Objective Vital signs: Vital Signs Temp Pulse Pulse Resp BP BP Pulse Ox 02/02/17 07:19 98.0 F 75 20 159/83 95 02/02/17 07:00 95 02/02/17 03:40 99.0 F 80 20 142/80 95 02/01/17 23:36 98.5 F 107 H 18 106/76 92 02/01/17 23:15 90 02/01/17 20:00 99.2 F 105 H 16 121/68 92 02/01/17 18:00 71 93 02/01/17 15:52 98.1 F 20 144/75 93 02/01/17 14:00 69 02/01/17 11:34 99.4 F 18 113/66 93 02/01/17 10:00 70 90 02/01/17 08:21 98.8 F 18 120/69 94 02/01/17 08:00 93 H Intake and Output 02/01/17 02/02/17 02/02/17 21:59 05:59 13:59 Intake Total 2371 / 2371 100 / 100 1170 / 1170 Output Total 1000 / 1000 1700 / 1700 Balance 1371 / 1371 -1600 / -1600 1170 / 1170 Intake: IV 891 / 891 1170 / 1170 Sodium Chloride 0.45% 1, 841 / 841 000 ml @ 40 mls/hr IV . Q24H [facility] Rx#:[id number] Sodium Chloride 0.9% 250 170 / 170 ml @ 20 mls/hr IV . [id number] [facility] Rx#:[id number] Rocephin 2 gm In Dextrose 50 / 50 5% in Water 50 ml @ 100 mls/hr IV DAILY [facility] Rx#: [id number] Oral 1480 / 1480 100 / 100 Output: Urine Catheter Amount 1000 / 1000 1700 / 1700 Other: Meal Dinner Percent of Meal Consumed 100% Feeding Ability Total Assistance Weight 182 lb Intake & Output: Intake & Output 03/02/02/17 02/02/17 21:59 05:59 13:59 Intake Total 2371 / 2371 100 / 100 1170 / 1170 Output Total 1000 / 1000 1700 / 1700 Balance 1371 / 1371 -1600 / -1600 1170 / 1170 Weight 182 lb Intake: IV 891 / 891 1170 / 1170 Sodium Chloride 0.45% 1, 841 / 841 000 ml @ 40 mls/hr IV . Q24H [facility] Rx#:[id number] Sodium Chloride 0.9% 250 170 / 170 ml @ 20 mls/hr IV . [id number] [facility] Rx#:[id number] Rocephin 2 gm In Dextrose 50 / 50 5% in Water 50 ml @ 100 mls/hr IV DAILY [facility] Rx#: [id number] Oral 1480 / 1480 100 / 100 Output: Urine Catheter Amount 1000 / 1000 1700 / 1700 Other: Meal Dinner Percent of Meal Consumed 100% Feeding Ability Total Assistance Incision: Yes healing Incision clean and dry: Yes Weight bearing status: full Neurological exam IM: Yes oriented X3, Yes neurovascular intact Extremities exam IM: Yes Foot pink and warm, Yes neurovascular intact - Labs CBC & BMP: 02/02/17 04:30 02/02/17 04:30 Labs: 02/02/17 02/01/17 01/31/17 04:30 05:00 05:15 Hgb 8.4 L 6.7 L* 10.1 L Hct 25.5 L 20.5 L* 31.0 L
--- NOTE | 2017-02-02 07:57 | Discharge Summary ---
Ortho Discharge Plan - General - Patient Instructions Diet: Regular Diet Activity: activity as tolerated, weight bearing as tolerated Dressing Care: Shahnaz Beatty - leave on for 5 days - Follow Up Plan Follow Up Appointments: Ishan Bedolla MD [Primary Care Provider] - Disposition: [facility] Prognosis: Fair Rehab Potential: Good I certify that the patient requires SNF services: Yes Overall status at discharge: patient is progressing back to baseline - Orders For Discharge Prescriptions: Aspirin [Ecotrin] 325 mg PO BID #14 tab.ec HYDROcodone/APAP 5/325MG [[place] 5/325Mg] 1 - 2 tab PO Q4HP PRN #60 tablet PRN Reason: Pain Additional Discharge Orders: OT Discharge Order Location: Determined By Patient Physical Therapy at Discharge - General Location: Determined By Patient
--- NOTE | 2017-02-02 08:10 | Internal Med Progress Note ---
Medical - PN: Subj Patient information: Note initiated : 02/02/17 at 8:10 am Service Date, if different from initiated Date: [] Patient: Andie Way 86 y/o F admitted on 01/30/17 for Fell w/o Walker Hurt Knee/Left Femur Fracture, UTI. Chief Complaint: [] - Constitutional Vitals: Vital Signs Temp Pulse Resp BP Pulse Ox 98.0 F 75 20 159/83 95 02/02/17 07:19 02/02/17 07:19 02/02/17 07:19 02/02/17 07:19 02/02/17 07:19 Period Temp Pulse Resp BP Sys/[place] Pulse Ox Last 24 Hr 98.0 F-99.4 F 69-107 16-20 106-159/66-83 90-95 Intake and Output 02/01/17 02/02/17 02/02/17 21:59 05:59 13:59 Intake Total 2371 / 2371 100 / 100 1170 / 1170 Output Total 1000 / 1000 1700 / 1700 Balance 1371 / 1371 -1600 / -1600 1170 / 1170 Weight 182 lb Intake & Output: Intake & Output 02/01/17 02/02/17 02/02/17 21:59 05:59 13:59 Intake Total 2371 / 2371 100 / 100 1170 / 1170 Output Total 1000 / 1000 1700 / 1700 Balance 1371 / 1371 -1600 / -1600 1170 / 1170 Weight 182 lb Intake: IV 891 / 891 1170 / 1170 Sodium Chloride 0.45% 1, 841 / 841 000 ml @ 40 mls/hr IV . Q24H [facility] Rx#:[id number] Sodium Chloride 0.9% 250 170 / 170 ml @ 20 mls/hr IV . [id number] [facility] Rx#:[id number] Rocephin 2 gm In Dextrose 50 / 50 5% in Water 50 ml @ 100 mls/hr IV DAILY [facility] Rx#: [id number] Oral 1480 / 1480 100 / 100 Output: Urine Catheter Amount 1000 / 1000 1700 / 1700 Other: Meal Dinner Percent of Meal Consumed 100% Feeding Ability Total Assistance Medical - PN: Obj Da - Labs CBC & Chem 7: 02/02/17 04:30 02/02/17 04:30 Labs: Abnormal Lab Results 02/02/17 02/02/17 02/01/17 04:30 04:30 05:00 RBC 2.80 L Hgb 8.4 L Hct 25.5 L RDW 14.6 H Plt Count 131 L Seg Neutrophils % Lymphocytes % Chloride 109 H Glucose 120 H Calcium 8.2 L Phosphorus 2.2 L 2.5 L Total Protein 4.8 L 4.7 L Albumin 2.7 L 2.9 L Globulin 2.1 L 1.8 L 02/01/17 01/31/17 01/31/17 05:00 05:15 05:15 RBC 2.24 L 3.41 L Hgb 6.7 L* 10.1 L Hct 20.5 L* 31.0 L RDW Plt Count Seg Neutrophils % 80 H 80 H Lymphocytes % 12 L 14 L Chloride Glucose 124 H Calcium Phosphorus Total Protein Albumin Globulin Meds: Medications Acetaminophen (Tylenol) 650 mg PO Q4-6HP PRN PRN Reason: PAIN/FEVER > 101 Acetaminophen/Hydrocodone Bitart ([place] 5/325mg) 0 tab PO Q4HP PRN PRN Reason: Pain Amlodipine Besylate (Norvasc) 2.5 mg PO DAILY [facility] Last Admin: 02/01/17 09:48 Dose: 2.5 mg Aspirin (Ecotrin) 325 mg PO BID [facility] Last Admin: 02/01/17 20:38 Dose: 325 mg Bisacodyl (Dulcolax) 10 mg ID Q2-3DAYS PRN PRN Reason: Constipation Docusate Sodium (Colace) 100 mg PO BID [facility] Last Admin: 02/01/17 20:38 Dose: 100 mg Donepezil HCl (Aricept) 10 mg PO QDAY [facility] Last Admin: 02/01/17 09:49 Dose: 10 mg Furosemide (Lasix) 40 mg PO QDAY [facility] Last Admin: 02/01/17 09:49 Dose: 40 mg Guaifenesin/Codeine Phosphate (Robitussin Ac) 10 ml PO Q4HP PRN PRN Reason: Cough Hydromorphone HCl (Dilaudid) 0 mg IV Q4HP PRN PRN Reason: Pain Magnesium Sulfate (Magnesium Sulfate) 2 gm in 50 mls @ 50 mls/hr IV UD PRN PRN Reason: MG = or < 1.7 Acetaminophen (Ofirmev) 1,000 mg in 100 mls @ 200 mls/hr IV Q6HP PRN PRN Reason: PAIN/FEVER > 101 Sodium Chloride (Sodium Chloride 0.45%) 1,000 mls @ 40 mls/hr IV .Q24H [facility] Last Admin: 02/01/17 18:26 Dose: 40 mls/hr Ceftriaxone Sodium 2 gm/ (Dextrose) 50 mls @ 100 mls/hr IV DAILY [facility] Last Infusion: 02/01/17 14:30 Dose: Infused Iron Carb/Multivit/[employer]/Folic Acid (Multivitamin W/Minerals) 1 tab PO DAILY [facility] Last Admin: 02/01/17 09:45 Dose: 1 tab Ketorolac Tromethamine (Toradol) 15 mg IV Q6 [facility] Stop: 02/02/17 18:01 Last Admin: 02/02/17 05:53 Dose: 15 mg Levothyroxine Sodium (Synthroid) 100 mcg PO ACB [facility] Last Admin: 02/01/17 09:46 Dose: 100 mcg Losartan Potassium (Cozaar) 50 mg PO DAILY [facility] Last Admin: 02/01/17 09:44 Dose: 50 mg Magnesium Hydroxide (Milk Of Magnesia) 30 ml PO BIDP PRN PRN Reason: Constipation Ondansetron HCl (Zofran) 4 mg IV Q4-6HP PRN PRN Reason: Nausea And Vomiting Oxybutynin Chloride (Ditropan) 5 mg PO BIDP PRN PRN Reason: bladder spasms Pantoprazole Sodium (Protonix) 40 mg PO QAMAC [facility] Last Admin: 02/01/17 09:46 Dose: 40 mg Paroxetine HCl (Paxil) 20 mg PO QDAY [facility] Last Admin: 02/01/17 09:44 Dose: 20 mg Phenyleph/Pramoxin/Glycr/W.Pet [ Hemorrhoidal Cream] 51 dose ID 2-3XW PRN PRN Reason: Hemorrhoids Polyethylene Glycol (Miralax) 17 gm PO DAILYP PRN PRN Reason: Constipation Potassium Chloride (Klor-Con) 40 meq PO DAILYP PRN PRN Reason: K+ < 3.5 Potassium Chloride (Kdur) 10 meq PO QAMCC [facility] Last Admin: 02/01/17 09:50 Dose: 10 meq Senna (Senokot) 2 tab PO HS [facility] Last Admin: 02/01/17 20:38 Dose: 2 tab Sodium Biphosphate/Sodium Phosphate (Fleets Adult) 1 dose ID Q3-4DAYS PRN PRN Reason: Constipation Sodium Chloride (Saline Flush) 10 ml IV Q8 [facility] Last Admin: 02/02/17 06:53 Dose: Not Given Temazepam (Restoril) 15 mg PO HSP PRN PRN Reason: Insomnia Throat Lozenges (Cepacol) 1 lozenge PO PRN PRN PRN Reason: Sore Throat Vitamin D (Vitamin D3) 1,000 unit PO DAILY [facility] Last Admin: 02/01/17 09:49 Dose: 1,000 unit Medical - PN: A/P - Time Spent With Patient Total time spent is greater than 50% in coordination of care (as documented) at patient's floor/unit and/or counseling patient: (1) Femur fracture, left Status: Acute Assessment and plan: * left femur fracture- operative intervention today. Patient nothing by mouth Issues managed by hospitalist service * acute blood loss anemia-2 units PRBC * complicated UTI- continue antibiotic coverage * history of dementia-continue donepezil. * Hypothyroidism on thyroxine * Anxiety disorder on paroxetine * Hypertension losartan/amlodipine * DNR plan * continue antibiotic coverage * 2 units PRBC * Continue home meds * physical therapy and SNF transition likely Saturday or Saturday Current Visit: Yes Medical - PN: Qual - VTE Deep Vein Thrombosis/Pulmonary Embolism Present on Admission: No
[2017-02-02 08:12] LABS: Eosinophils % (Manual) 3 % (0-7); Lymphocytes % 16 % (15-49); Monocytes % (Manual) 4 % (1-9); Platelet Estimate DECREASED (NORMAL); RBC Morphology NORMAL (NORMAL); Segmented Neutrophils % 77 % (38-78)
[2017-02-02] MEDS: PANTOPRAZOLE 40 MG TABLET PO SCH (08:31)
[2017-02-02] MEDS: LEVOTHYROXINE 100 MCG TABLET PO SCH (08:33)
[2017-02-02] MEDS: ASPIRIN 325 MG ENTERIC COATED TABLET PO SCH (08:36)
[2017-02-02] MEDS: DONEPEZIL 10 MG TABLET PO SCH (08:37)
[2017-02-02] MEDS: LOSARTAN 50 MG TABLET PO SCH (08:37)
[2017-02-02] MEDS: POTASSIUM CHLORIDE 10 MEQ TABLET PO SCH (08:37)
[2017-02-02] MEDS: amLODIPine 5 MG TABLET PO SCH (08:37)
[2017-02-02] MEDS: PARoxetine 20 MG TABLET PO SCH (08:37)
[2017-02-02] MEDS: VITAMIN D3 1,000 UNIT TABLET PO SCH (08:37)
[2017-02-02] MEDS: FUROSEMIDE 40 MG TABLET PO SCH (08:38)
[2017-02-02] MEDS: DOCUSATE SODIUM 100 MG CAPSULE PO SCH (08:38)
--- NOTE | 2017-02-02 09:05 | Discharge Summary ---
Medical - DS: Prov Patient information: Note initiated : 02/02/17 at 9:03 am Service Date, if different from initiated Date: [] Patient: Andie Way 86 y/o F admitted on 01/30/17 for Fell w/o Walker Hurt Knee/Left Femur Fracture, UTI. Chief Complaint: [] Date of admission: 01/30/17 17:10 Discharge date: 02/02/17 Primary care physician: [f_Reg Prim Care Provider] Medical - DS: Meds - Discharge Medications Prescriptions: Amoxicillin/Potassium Clav [Augmentin] 875 mg PO Q12H #10 tablet Aspirin [Ecotrin] 325 mg PO BID #14 tab.ec HYDROcodone/APAP 5/325MG [[place] 5/325Mg] 1 - 2 tab PO Q4HP PRN #60 tablet PRN Reason: Pain Active and Home Medications: Home Medications paroxetine 20 mg tablet 20 mg PO QDAY #90 tab 01/09/16 [Rx Confirmed 01/31/17 Last Taken 01/30/17 09:00] levothyroxine 100 mcg capsule 100 mcg PO QDAY #90 cap 03/19/16 [Rx Confirmed Last Taken 01/30/17 06:00] aspirin 81 mg chewable tablet 81 mg PO QDAY #30 tab 03/27/16 [Rx Confirmed 01/31 Last Taken 01/30/17 09:00] furosemide 40 mg tablet 40 mg PO QDAY 90 Days 09/25/16 [Rx Confirmed 01/31/17 Last Taken 01/30/17 09:00] cholecalciferol (vitamin D3) 1,000 unit capsule 1,000 unit PO QDAY cap [History Confirmed 01/31/17 Last Taken 01/29/17 20:00] potassium chloride ER 10 mEq tablet,extended release 10 meq PO QDAY #180 tab [Rx Confirmed 01/31/17 Last Taken 01/30/17 09:00] alendronate 70 mg tablet 70 mg PO QWEEK #12 tab 11/14/16 [Rx Confirmed 01/31/17 Last Taken 01/30/17 06:00] donepezil 10 mg tablet 10 mg PO QDAY 90 Days 11/14/16 [Rx Confirmed 01/31/17 Last Taken 01/29/17 20:00] omeprazole 40 mg capsule,delayed release 40 mg PO QDAY 90 Days 11/14/16 [Rx Confirmed 01/31/17 Last Taken 01/30/17 09:00] oxybutynin chloride 5 mg tablet 5 mg PO BID PRN 90 Days 11/14/16 [Rx Confirmed 01/31/17 Last Taken 01/30/17 09:00] tramadol 50 mg tablet 50 mg PO QHS PRN #90 tab 11/15/16 [Rx Confirmed 01/31/17 Last Taken 01/29/17 20:00] losartan 100 mg tablet 100 mg PO QDAY 90 Days 11/19/16 [Rx Confirmed 01/31/17 Last Taken 01/29/17 20:00] amlodipine 2.5 mg tablet 2.5 mg PO QDAY 90 Days 11/26/16 [Rx Confirmed 01/31/17 Last Taken 01/29/17 20:00] docusate sodium 100 mg capsule 100 mg PO BID PRN #180 cap 12/10/16 [Rx Confirmed 01/31/17 Last Taken 01/30/17 09:00] Acetaminophen [Tylenol] 325 - 650 mg PO Q4-6HP PRN 01/31/17 [History Confirmed 01/31/17 Last Taken Unknown] Magnesium Hydroxide [Milk of Magnesia] 30 ml PO DAILYP PRN 01/31/17 [History Confirmed 01/31/17 Last Taken Unknown] Phenyleph/Pramoxin/Glycr/W.pet [Hemorrhoidal Cream] 51 gm RC 2-3XW PRN 01/31/17 [History Confirmed 01/31/17 Last Taken Unknown] Aspirin [Ecotrin] 325 mg PO BID #14 tab.ec 02/02/17 [Rx Last Taken Unknown] HYDROcodone/APAP 5/325MG [[place] 5/325Mg] 1 - 2 tab PO Q4HP PRN #60 tablet [Rx Last Taken Unknown] Medical - DS: Hosp Hospital course: DISCHARGE DIAGNOSES * left femur fracture- status post operative repair. managed by orthopedics. Discharge to SNF for continued PT OT Issues managed by hospitalist service * acute blood loss anemia-status post 2 units PRBC. Hemoglobin 8.4 * complicated UTI- continue oral antibiotic coverage * history of dementia-continue donepezil. * Hypothyroidism on thyroxine * Anxiety disorder on paroxetine * Hypertension losartan/amlodipine BRIEF HOSPITAL COURSE Mr. Way is a 86 year old female admitted with left femur fracture 01/30- 6-year-old with advanced dementia admitted with fall/left femur fracture and complicated UTI. surgeryon 01/31. Orthopedics on board. Continue pain management. Keep nothing by mouth after midnight. 01/31- patient nothing by mouth. Will review postop. Urine cultures pending. On Rocephin. Afebrile. No overnight events including fever chills nausea vomiting or worsening pain. Dementia at baseline 02/01-Postop day 1. hemoglobin down to 6.7. 2 units PRBC transfusion today. Overnight no fever chills nausea vomiting on postoperative pain. Family at bedside. no active concerns per family and patient or staff. urine cultures negative so far.on antibiotic - patient doing well. No overnight events. No concerns per staff. Dementia at baseline. No significant postoperative pain. hemoglobin stable at 8.4 post previous transfusion. Discharge to SNF for continued PT OT/post hospitalization rehabilitation Discharge diagnosis: . - Time Spent with Patient Total time spent providing and/or coordinating discharge services: Greater than 30 minutes Medical - DS: Exam - Constitutional Vitals: Vital Signs Temp Pulse Pulse Resp BP BP Pulse Ox 02/02/17 07:19 98.0 F 75 20 159/83 95 02/02/17 07:00 95 02/02/17 03:40 99.0 F 80 20 142/80 95 02/01/17 23:36 98.5 F 107 H 18 106/76 92 02/01/17 23:15 90 02/01/17 20:00 99.2 F 105 H 16 121/68 92 02/01/17 18:00 71 93 02/01/17 15:52 98.1 F 20 144/75 93 02/01/17 14:00 69 02/01/17 11:34 99.4 F 18 113/66 93 02/01/17 10:00 70 90 Intake and Output 02/01/17 02/02/17 02/02/17 21:59 05:59 13:59 Intake Total 2371 / 2371 100 / 100 1170 / 1170 Output Total 1000 / 1000 1700 / 1700 Balance 1371 / 1371 -1600 / -1600 1170 / 1170 Intake: IV 891 / 891 1170 / 1170 Sodium Chloride 0.45% 1, 841 / 841 000 ml @ 40 mls/hr IV . Q24H [facility] Rx#:[id number] Sodium Chloride 0.9% 250 170 / 170 ml @ 20 mls/hr IV . [id number] [facility] Rx#:[id number] Rocephin 2 gm In Dextrose 50 / 50 5% in Water 50 ml @ 100 mls/hr IV DAILY [facility] Rx#: [id number] Oral 1480 / 1480 100 / 100 Output: Urine Catheter Amount 1000 / 1000 1700 / 1700 Other: Meal Dinner Percent of Meal Consumed 100% Feeding Ability Total Assistance Weight 182 lb Medical - DS: Data Labs on day of discharge: Labs from last 24 hours 02/02/17 02/02/17 02/01/17 04:30 04:30 05:00 WBC 8.8 9.6 RBC 2.80 L 2.24 L Hgb 8.4 L 6.7 L* Hct 25.5 L 20.5 L* MCV 91.1 91.6 MCH 30.1 29.7 MCHC 33.1 32.4 RDW 14.6 H 14.1 Plt Count 131 L 152 MPV 8.5 8.2 Total Counted 100 100 Seg Neutrophils % 77 80 H Band Neutrophils % Not Reportable Lymphocytes % 16 12 L Monocytes % (Manual) 4 8 Eosinophils % (Manual) 3 Platelet Estimate Decreased Normal RBC Morphology Normal Normal Sodium 142 Potassium 3.6 Chloride 109 H Carbon Dioxide 23 Anion Gap 10.0 BUN 14 Creatinine 0.8 GFR Calculation 67 Glucose 101 Uric Acid 5.5 Calcium 8.9 Phosphorus 2.2 L Magnesium 1.8 Total Bilirubin 0.3 Direct Bilirubin < 0.2 GGT 8 AST 21 ALT 9 Alkaline Phosphatase 43 Lactate Dehydrogenase 148 Total Protein 4.8 L Albumin 2.7 L Globulin 2.1 L Albumin/Globulin Ratio 1.3 Triglycerides 106 Medical - DS: A/P - Patient/Caregiver Discharge Instructions Activity: as per physical therapy, resume usual activities as tolerated Diet: Regular Diet Additional Instructions: PT, OT, ST at Follow-up PCP in 5 days F/u orthopedics as scheduled by orthopedics along with post op care As recommended by orthopedics. I recommend SNF physician to check CBC BMP UA as a posthospital follow-up Antibiotics for additional 5 days oral Augmentin dementia care Continue aggressive bowel regimen to prevent constipation Continue fall precautions Continue aggressive PT OT at All meals on chair sitting upright at 90 degrees to prevent aspiration Return to ER if worsening fever chills shortness of breath, diarrhea, bleeding Review risk and side effect profile of medications including antibiotics. Side effect may include mild to severe reaction including rash, diarrhea, cdiff and even which can be prevented by close follow-up with PCP and monitoring for side effects Continue diet and activity as advised Discussed importance of medication adherence Please review medication list with patient prior to discharge Please schedule follow-up with PCP/Providers prior to discharge and provide printouts Portions of this chart may have been created with [employer] voice recognition software. Occasional wrong-word or ?sound-like? substitutions may have occurred due to the inherent limitations of voice recognition software. Please read the chart carefully and recognize, using context, where the substitutions have occurred. CC- PCP Prescriptions: Amoxicillin/Potassium Clav [Augmentin] 875 mg PO Q12H #10 tablet Aspirin [Ecotrin] 325 mg PO BID #14 tab.ec HYDROcodone/APAP 5/325MG [[place] 5/325Mg] 1 - 2 tab PO Q4HP PRN #60 tablet PRN Reason: Pain Other Amb Orders: OT Discharge Order Location: Determined By Patient Physical Therapy at Discharge - General Location: Determined By Patient Velcro Discharge Order Location: Determined By Patient - Problem Maintenance (1) Femur fracture, left Status: Acute - Follow up Plan Follow up with: Andriy Walker MD [Physician] - (Call on Saturday for a 2 week follow up with Dr Walker or Alaina) Disposition: Xfer SNF Prognosis: Fair Rehab Potential: Fair I certify that the patient requires SNF services: Yes Overall status at discharge: patient is progressing back to baseline Medical - DS: Qual - VTE Deep Vein Thrombosis/Pulmonary Embolism Present on Admission: No
== END 2017-02-02 09:10 | DRG 481 ==
LOC: ED-MC 12:21 → MEDSUR 17:00
PROVIDERS: ADMIT Internal Medicine; ATTEND Internal Medicine